=== PATIENT | female | born 1960 | race Caucasian/White ===

== ENCOUNTER → 2021-01-11 | Outpatient (CLI) | payer OTHER ==
[~2021-01-11] MED LIST: ASPI81CH43; SULF400T11
[2021-01-12 06:06] LABS: RPR Non Reactive (Non Reactive)
== END | disposition home or self-care (01) ==
LOC: LAB 10:10
PROVIDERS: ATTEND Obstetrics & Gynecology
DX: Z72.51 High risk heterosexual behavior (principal)
CPT/HCPCS: 36415; 86592; 87340

== ENCOUNTER 2021-10-13 09:38 | Emergency (ER) | payer OTHER ==
[~2021-10-13] VITALS: Ht 162.6 cm; Wt 52.2 kg
[2021-10-13 10:01] VITALS: BP 140/80
[2021-10-13] MEDS ORDERED: ACYC-161 PO (10:09)
== END 2021-10-13 10:27 | disposition home or self-care (01) ==
LOC: ER 09:38
DX: B01.9 Varicella without complication (principal); I10 Essential (primary) hypertension; Z87.891 Personal history of nicotine dependence; Z79.82 Long term (current) use of aspirin; Z79.899 Other long term (current) drug therapy